=== PATIENT | female | born 1940 | race Caucasian/White ===

== ENCOUNTER → 2017-03-22 | Outpatient (CLI) | payer MEDICARE, BC ==
--- NOTE | 2017-03-23 15:50 | MM ---
Reason for exam: screening (asymptomatic). Last mammogram was performed 1 year and 1 month ago. History: Patient is postmenopausal. Family history of breast cancer in aunt and breast cancer in mother. Excisional biopsy of the left breast. Excisional biopsy of the right breast. Physical Findings: A clinical breast exam by your physician is recommended on an annual basis and results should be correlated with mammographic findings. MG 3D Screening Mammo W/Cad Bilateral CC and MLO view(s) were taken. Prior study comparison: March 01, 2016, bilateral MG 3d diag mammo w/cad IZZY. October 07, 2013, left diagnostic mammogram w/CAD. There are scattered fibroglandular densities. No significant changes when compared with prior studies. ASSESSMENT: Benign, BI-RAD 2 RECOMMENDATION: Routine screening mammogram of both breasts in 1 year.
== END | disposition home or self-care (01) ==
LOC: RADMAMWWP 10:45
PROVIDERS: ATTEND Internal Medicine
DX: Z12.31 Encounter for screening mammogram for malignant neoplasm of breast (principal)
CPT/HCPCS: 77063; G0202

== ENCOUNTER → 2021-10-11 | Outpatient (CLI) | payer MEDICARE ==
--- NOTE | 2021-10-11 15:24 | CT ---
EXAMINATION TYPE: CT ankle RT wo con DATE OF EXAM: 10/11/2021 COMPARISON: None. HISTORY: Displaced bimalleolar fracture of right leg. Pain. CT DLP: 226.8 mGycm Automated exposure control for dose reduction was used. CONTRAST: CT right ankle without contrast FINDINGS: Overlying fiberglass cast material is present. Osseous structures are demineralized. There is acute comminuted minimally displaced intra-articular fracture of the medial malleolus confir med greatest along the anterior aspect. No intra-articular loose bodies. There is acute comminuted intra-articular minimally displaced fracture through the lateral malleolus slight lateral step off of the distal fracture fragment measuring approximately 2 mm. A few small bon y fragments or calcifications along the posterior aspect of the lateral malleolus between the adjacen t talus are identified intra-articular in location coronal images 34 through 37. Posterior malleolus is intact. Ankle mortise symmetry is maintained. Small sized inferior calcaneal spur. Moderate to severe narrowing at the first metatarsal articulatio n with the medial cuneiform with some bony formation. Moderate diffuse subcutaneous edema and soft ti ssue swelling throughout the distal leg into the ankle along with the hindfoot and midfoot levels. IMPRESSION: As above.
== END | disposition home or self-care (01) ==
LOC: RADCTMAIN 13:59
PROVIDERS: ATTEND Orthopaedic Surgery
DX: M25.571 Pain in right ankle and joints of right foot (principal); S82.841D Displaced bimalleolar fracture of right lower leg, subsequent encounter for closed fracture with routine healing; X58.XXXD Exposure to other specified factors, subsequent encounter

== ENCOUNTER → 2021-11-03 | Outpatient (CLI) | payer MEDICARE ==
--- NOTE | 2021-11-03 14:39 | US ---
EXAMINATION TYPE: US venous doppler duplex LE RT DATE OF EXAM: 11/03/2021 2:24 PM COMPARISON: NONE CLINICAL HISTORY: 81-year-old female I80.9 Phlebitis and thrombophlebitis of unspecified. Patient has a fracture of the right lower leg. SIDE PERFORMED: Right TECHNIQUE: The lower extremity deep venous system is examined utilizing real time linear array sonog wilner with graded compression, doppler sonography and color-flow sonography. FINDINGS: VESSELS IMAGED: Common Femoral Vein Deep Femoral Vein Greater Saphenous Vein * Femoral Vein Popliteal Vein Small Saphenous Vein * Proximal Calf Veins (* superficial vessels) Right Leg: Negative for DVT Relief Charge Nurse notes: Difficult examination due to limited mobility caused by recent fracture of the rig ht lower extremity. IMPRESSION: No evidence for DVT within the right lower extremity imaged from the groin to the upper calf.
== END | disposition home or self-care (01) ==
LOC: RADUSWWP 13:51
PROVIDERS: ATTEND Orthopaedic Surgery
DX: S82.841D Displaced bimalleolar fracture of right lower leg, subsequent encounter for closed fracture with routine healing (principal); I80.9 Phlebitis and thrombophlebitis of unspecified site; X58.XXXD Exposure to other specified factors, subsequent encounter

== ENCOUNTER 2024-08-12 16:44 | Emergency (ER) | payer MEDICARE ==
--- NOTE | 2024-08-12 16:54 | ED ---
Fall HPI - General Stated Complaint: [id number]-[id number] Injury Time Seen by Provider: 08/12/24 16:51 Source: RN notes reviewed, old records reviewed Mode of arrival: ambulatory Limitations: no limitations - History of Present Illness Initial Comments: This is a 84-year-old female to the ER for evaluation. Patient comes in as an unresponsive suspected trauma patient. Patient was found on the ground in her garage now with difficulty responding. to the left little bit prior a few hours and patient was acting normally in normal condition in the house. 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 Witnessed: yes, by family Place Fall Occurred: home Loss of Consciousness: none Prolonged Down Time?: no Symptoms Prior to Fall: none Location: head Severity: severe Severity scale (1-10): 10 Context: tripped/slipped Associated Symptoms: denies - Related Data Home Medications Medication Instructions Recorded Confirmed traMADol HCl [Ultram] 50 mg PO Q6H PRN 08/17/15 08/12/24 Baclofen [Lioresal] 10 mg PO TID PRN 08/12/24 08/12/24 Clopidogrel [Plavix] 75 mg PO DAILY 08/12/24 08/12/24 DULoxetine HCL [Cymbalta] 60 mg PO HS 08/12/24 08/12/24 Donepezil [Aricept] 10 mg PO BID 08/12/24 08/12/24 Fluticasone/Vilanterol [Breo 1 puff INHALATION RT-DAILY 08/12/24 08/12/24 Ellipta 100-25 Mcg Inhalr] Pantoprazole Sodium [Protonix] 40 mg PO DAILY 08/12/24 08/12/24 traZODone HCL [Desyrel] 50 mg PO HS 08/12/24 08/12/24 Allergies Allergy/AdvReac Type Severity Reaction Status Date / Time Iodinated Contrast Media Allergy Dyspnea Verified 08/12/24 17:03 [Iodinated Contrast Media - IV Dye] latex Allergy Dyspnea Verified 08/12/24 17:03 shellfish derived [Shellfish] Allergy Dyspnea Verified 08/12/24 17:03 Review of Systems ROS Statement: Those systems with pertinent positive or pertinent negative responses have been documented in the HPI. ROS Other: All systems not noted in ROS Statement are negative. Past Medical History Past Medical History: Asthma, COPD, Eye Disorder, Hypertension, Musculoskeletal Disorder, Osteoarthritis (OA) Additional Past Medical History / Comment(s): Sarcoidosis. BILAT CATARACTS - History of Any Multi-Drug Resistant Organisms: None Reported Past Surgical History: Cholecystectomy, Hernia Repair, Tonsillectomy Additional Past Surgical History / Comment(s): 2 Br Biopsies Past Anesthesia/Blood Transfusion Reactions: Motion Sickness Past Psychological History: No Psychological Hx Reported Past Alcohol Use History: None Reported Past Drug Use History: None Reported - Past Family History Mother Family Medical History: Cancer Additional Family Medical History / Comment(s): breast General Exam - General Exam Comments Initial Comments: GCS 12 Airway is patent Trachea is midline Breath sounds equal bilaterally No evidence of significant extremity deformity General appearance: alert, in no apparent distress Head exam: Present: normocephalic, normal inspection. Absent: atraumatic (Patient does have right posterior scalp hematoma) Eye exam: Present: normal appearance, PERRL, EOMI. Absent: scleral icterus, conjunctival injection, periorbital swelling ENT exam: Present: normal exam, mucous membranes moist Neck exam: Present: normal inspection. Absent: tenderness, meningismus, lymphadenopathy Respiratory exam: Present: normal lung sounds bilaterally. Absent: respiratory distress, wheezes, rales, rhonchi, stridor Cardiovascular Exam: Present: regular rate, normal rhythm, normal heart sounds. Absent: systolic murmur, diastolic murmur, rubs, gallop, clicks GI/Abdominal exam: Present: soft, normal bowel sounds. Absent: distended, tenderness, guarding, rebound, rigid Extremities exam: Present: normal inspection, full ROM, normal capillary refill. Absent: tenderness, pedal edema, joint swelling, calf tenderness Back exam: Present: normal inspection Neurological exam: Present: alert, oriented X3, CN II-XII intact Psychiatric exam: Present: normal affect, normal mood Skin exam: Present: warm, dry, intact, normal color. Absent: rash Course Vital Signs 08/12/24 16:59 Temperature 97.1 F L Pulse Rate 81 Respiratory 20 Rate Blood Pressure 170/94 O2 Sat by Pulse 98 Oximetry - Reevaluation(s) Reevaluation #1: 08/12/24 18:02 Medical records reviewed Reevaluation #2: 08/12/24 18:02 Patient symptoms unchanged 08/12/24 18:02 Patient is requiring sedation Reevaluation #3: 08/12/24 18:02 Patient informed of results and questions answered Reevaluation #4: Was pt. sent in by a medical professional or institution (SANTY Freitas, [facility], urgent care, hospital, or correction...) When possible be specific @ -no Did you speak to anyone other than the patient for history (EMS, parent, family, police, friend...)? What history was obtained from this source @ -no Did you review nursing and triage notes (agree or disagree)? Why? @ -agree Are old charts reviewed (outside hosp., previous admission, EMS record, old EKG, old radiological studies, urgent care reports/EKG's, correction records)? Report findings @ -yes Differential Diagnosis (chest pain, altered mental status, abdominal pain women, abdominal pain men, vaginal bleeding, weakness, fever, dyspnea, syncope, heada oswald, dizziness, GI bleed, back pain, seizure, CVA, palpatations, mental health, musculoskeletal)? @ -prior EKG interpreted by me (3pts min.). @ -yes X-rays interpreted by me (1pt min.). @ -yes negative for acute disease CT interpreted by me (1pt min.). @ -Yes positive for subarachnoid hemorrhage U/S interpreted by me (1pt. min.). @ -no What testing was considered but not performed or refused? (CT, X-rays, U/S, labs)? Why? @ -none What meds were considered but not given or refused? Why? @ -none Did you discuss the management of the patient with other professionals (professionals i.e. SANTY Freitas, [facility], lab, RT, psych nurse, social organization professor, label rewinder, teacher, security officers and guards, disease case manager)? Give summary @ -no Was smoking cessation discussed for >3mins.? @ -no Was critical care preformed (if so, how long)? @ -yes31 Were there social determinants of health that impacted care today? How? (Ho melessness, low income, unemployed, alcoholism, drug addiction, transportation, low edu. Level, literacy, decrease access to med. care, mcc, rehab)? @ -none Was there de-escalation of care discussed even if they declined (Discuss DNR or withdrawal of care, Hospice)? DNR status @ -no What co-morbidities impacted this encounter? (DM, HTN, Smoking, COPD, CAD, Cancer, CVA, ARF, Chemo, Hep., AIDS, mental health diagnosis, sleep apnea, morbid obesity)? @ -none Was patient admitted / discharged? Hospital course, mention meds given and route, prescriptions, significant lab abnormalities, going to OR and other pertinent info. @ - 84 female status posttraumatic fall with subarachnoid hemorrhage. No evidence of aneurysm patient will transfer under traumatic trauma to [facility] Transferred to inpatient evaluation Undiagnosed new problem with uncertain prognosis? @ -no Drug Therapy requiring intensive monitoring for toxicity (Heparin, Nitro, Insulin, Cardizem)? @ -no Were any procedures done? @ -no Diagnosis/symptom? @ -Subarachnoid hemorrhage with traumatic fall Acute, or Chronic, or Acute on Chronic? @ -Acute Uncomplicated (without systemic symptoms) or Complicated (systemic symptoms)? @ -Complicated Side effects of treatment? @ -no Exacerbation, Progression, or Severe Exacerbation? @ -exacerbation Poses a threat to life or bodily function? How? (Chest pain, [place], [place], pneumonia, PE, COPD, DKA, ARF, appy, cholecystitis, CVA, Diverticulitis, Homicidal, Suicidal, threat to staff... and all critical care pts) @ -yes extremes of age Reevaluation #5: Differential Altered Mental Status: Hypoglycemia, DKA, hypercapnia, ETOH, overdose, CO poisoning, trauma, myxedema coma, HTN encephalopathy, infection, encephalitis, psychosis, intercranial hem orrhage, hepatic encephalopathy, meningitis, CVA, this is not meant to be an all-inclusive list - Consultations Consultation #1: Spoke with transferring hospital who does accept patient as transfer Medical Decision Making - Medical Decision Making 84 female status posttraumatic fall with subarachnoid hemorrhage. No evidence of aneurysm patient will transfer under traumatic trauma to [facility] - Lab Data Result diagrams: 08/12/24 16:59 08/12/24 16:59 Lab Results 08/12/24 08/12/24 08/12/24 Range/Units 16:59 16:59 16:59 WBC 11.6 H (3.8-10.6) k/uL RBC 4.46 (3.80-5.40) m/uL Hgb 13.2 (11.4-16.0) gm/dL Hct 40.8 (34.0-46.0) % MCV 91.5 (80.0-100.0) fL MCH 29.6 (25.0-35.0) pg MCHC 32.4 (31.0-37.0) g/dL RDW 14.4 (11.5-15.5) % Plt Count 178 (150-450) k/uL MPV 8.2 Neutrophils % 84 % Lymphocytes % 9 % Monocytes % 5 % Eosinophils % 2 % Basophils % 0 % Neutrophils # 9.7 H (1.3-7.7) k/uL Lymphocytes # 1.0 (1.0-4.8) k/uL Monocytes # 0.5 (0-1.0) k/uL Eosinophils # 0.2 (0-0.7) k/uL Basophils # 0.0 (0-0.2) k/uL PT (10.0-12.5) sec INR (<1.2) APTT (22.0-30.0) sec Sodium 137 (137-145) mmol/L Potassium 4.7 (3.5-5.1) mmol/L Chloride 103 (98-107) mmol/L Carbon Dioxide 25 (22-30) mmol/L Anion Gap 9 mmol/L BUN 21 H (7-17) mg/dL Creatinine 0.87 (0.52-1.04) mg/dL Est GFR (CKD-EPI)AfAm 71 (>60 ml/min/1.73 sqM) Est GFR (CKD-EPI)NonAf 62 (>60 ml/min/1.73 sqM) Glucose 120 H (74-99) mg/dL Lactic Ac Sepsis Rflx Plasma Lactic Acid Ambrose (0.7-2.0) mmol/L Calcium 8.8 (8.4-10.2) mg/dL Total Bilirubin 1.0 (0.2-1.3) mg/dL AST 37 H (14-36) U/L ALT 16 (4-34) U/L Alkaline Phosphatase 70 (38-126) U/L Troponin I 0.103 H* (0.000-0.034) ng/mL Total Protein 5.9 L (6.3-8.2) g/dL Albumin 3.8 (3.5-5.0) g/dL Urine Opiates Screen (NotDetected) Ur Oxycodone Screen (NotDetected) Urine Methadone Screen (NotDetected) Ur Barbiturates Screen (NotDetected) U Tricyclic Antidepress (NotDetected) Ur Phencyclidine Scrn (NotDetected) Ur Amphetamines Screen (NotDetected) U Methamphetamines Scrn (NotDetected) U Benzodiazepines Scrn (NotDetected) Urine Cocaine Screen (NotDetected) U Marijuana (THC) Screen (NotDetected) Serum Alcohol <10 mg/dL Blood Type Blood Type Confirm Blood Type Recheck Bld Type Recheck Status Antibody Screen Spec Expiration Date 08/12/24 08/12/24 08/12/24 Range/Units 17:05 17:05 17:05 WBC (3.8-10.6) k/uL RBC (3.80-5.40) m/uL Hgb (11.4-16.0) gm/dL Hct (34.0-46.0) % MCV (80.0-100.0) fL MCH (25.0-35.0) pg MCHC (31.0-37.0) g/dL RDW (11.5-15.5) % Plt Count (150-450) k/uL MPV Neutrophils % % Lymphocytes % % Monocytes % % Eosinophils % % Basophils % % Neutrophils # (1.3-7.7) k/uL Lymphocytes # (1.0-4.8) k/uL Monocytes # (0-1.0) k/uL Eosinophils # (0-0.7) k/uL Basophils # (0-0.2) k/uL PT 11.1 (10.0-12.5) sec INR 1.0 (<1.2) APTT 21.3 L (22.0-30.0) sec Sodium (137-145) mmol/L Potassium (3.5-5.1) mmol/L Chloride (98-107) mmol/L Carbon Dioxide (22-30) mmol/L Anion Gap mmol/L BUN (7-17) mg/dL Creatinine (0.52-1.04) mg/dL Est GFR (CKD-EPI)AfAm (>60 ml/min/1.73 sqM) Est GFR (CKD-EPI)NonAf (>60 ml/min/1.73 sqM) Glucose (74-99) mg/dL Lactic Ac Sepsis Rflx Plasma Lactic Acid Ambrose 2.7 H* (0.7-2.0) mmol/L Calcium (8.4-10.2) mg/dL Total Bilirubin (0.2-1.3) mg/dL AST (14-36) U/L ALT (4-34) U/L Alkaline Phosphatase (38-126) U/L Troponin I (0.000-0.034) ng/mL Total Protein (6.3-8.2) g/dL Albumin (3.5-5.0) g/dL Urine Opiates Screen (NotDetected) Ur Oxycodone Screen (NotDetected) Urine Methadone Screen (NotDetected) Ur Barbiturates Screen (NotDetected) U Tricyclic Antidepress (NotDetected) Ur Phencyclidine Scrn (NotDetected) Ur Amphetamines Screen (NotDetected) U Methamphetamines Scrn (NotDetected) U Benzodiazepines Scrn (NotDetected) Urine Cocaine Screen (NotDetected) U Marijuana (THC) Screen (NotDetected) Serum Alcohol mg/dL Blood Type O Positive Blood Type Confirm Blood Type Recheck No Previous Record Bld Type Recheck Status CABO Indicated Antibody Screen NEGATIVE Spec Expiration Date 08/15/2024230408/12/24 08/12/24 08/12/24 Range/Units 17:27 17:38 18:18 WBC (3.8-10.6) k/uL RBC (3.80-5.40) m/uL Hgb (11.4-16.0) gm/dL Hct (34.0-46.0) % MCV (80.0-100.0) fL MCH (25.0-35.0) pg MCHC (31.0-37.0) g/dL RDW (11.5-15.5) % Plt Count (150-450) k/uL MPV Neutrophils % % Lymphocytes % % Monocytes % % Eosinophils % % Basophils % % Neutrophils # (1.3-7.7) k/uL Lymphocytes # (1.0-4.8) k/uL Monocytes # (0-1.0) k/uL Eosinophils # (0-0.7) k/uL Basophils # (0-0.2) k/uL PT (10.0-12.5) sec INR (<1.2) APTT (22.0-30.0) sec Sodium (137-145) mmol/L Potassium (3.5-5.1) mmol/L Chloride (98-107) mmol/L Carbon Dioxide (22-30) mmol/L Anion Gap mmol/L BUN (7-17) mg/dL Creatinine (0.52-1.04) mg/dL Est GFR (CKD-EPI)AfAm (>60 ml/min/1.73 sqM) Est GFR (CKD-EPI)NonAf (>60 ml/min/1.73 sqM) Glucose (74-99) mg/dL Lactic Ac Sepsis Rflx Y Plasma Lactic Acid Ambrose (0.7-2.0) mmol/L Calcium (8.4-10.2) mg/dL Total Bilirubin (0.2-1.3) mg/dL AST (14-36) U/L ALT (4-34) U/L Alkaline Phosphatase (38-126) U/L Troponin I (0.000-0.034) ng/mL Total Protein (6.3-8.2) g/dL Albumin (3.5-5.0) g/dL Urine Opiates Screen Not Detected (NotDetected) Ur Oxycodone Screen Not Detected (NotDetected) Urine Methadone Screen Not Detected (NotDetected) Ur Barbiturates Screen Not Detected (NotDetected) U Tricyclic Antidepress Not Detected (NotDetected) Ur Phencyclidine Scrn Not Detected (NotDetected) Ur Amphetamines Screen Not Detected (NotDetected) U Methamphetamines Scrn Not Detected (NotDetected) U Benzodiazepines Scrn Not Detected (NotDetected) Urine Cocaine Screen Not Detected (NotDetected) U Marijuana (THC) Screen Not Detected (NotDetected) Serum Alcohol mg/dL Blood Type Blood Type Confirm O Positive Blood Type Recheck Bld Type Recheck Status Antibody Screen Spec Expiration Date - EKG Data -: EKG Interpreted by Me (EKG is sinus 82 RI 181 QRS 77 QTc 421) - Radiology Data Radiology results: report reviewed (CT brain C-spine chest and pelvis x-ray pos itive for intracranial hemorrhage subarachnoid), image reviewed Critical Care Time Critical Care Time: Yes Total Critical Care Time: 31 Disposition Clinical Impression: Fall, Subarachnoid hemorrhage, Hematoma of occipital region of scalp Disposition: OTHER INSTITUTION NOT DEFINED Condition: Critical Is patient prescribed a controlled substance at d/c from ED?: No Referrals: Cleveland Burden MD [Primary Care Provider] - 1-2 days Time of Disposition: 18:20 - Out of Hospital Transfer - Req. Specs Out of Hospital Transfer - Requested Specifics: Other Emergency Center ([facility])
[2024-08-12 17:02] VITALS: BP 170/94; PULSE 81; RESP 20; TEMP 97.1
[2024-08-12] MEDS: LORazepam 2 MG/ML INJ IV STA ×2 (17:12→18:28)
[2024-08-12 17:17] LABS: Basophils % (A) 0 %; Eosinophils # (A) 0.2 k/uL (0-0.7); Eosinophils % (A) 2 %; HCT 40.8 % (34.0-46.0); HGB 13.2 gm/dL (11.4-16.0); Lymphocytes % (A) 9 %; MCH 29.6 pg (25.0-35.0); MCHC 32.4 g/dL (31.0-37.0); MCV 91.5 fL (80.0-100.0); Mean Platelet Volume 8.2; Monocytes # (A) 0.5 k/uL (0-1.0); Monocytes % (A) 5 %; Neutrophils # (A) 9.7 k/uL (1.3-7.7); Neutrophils % (A) 84 %; Platelet Count 178 k/uL (150-450); RBC 4.46 m/uL (3.80-5.40); RDW 14.4 % (11.5-15.5); WBC 11.6 k/uL (3.8-10.6)
[2024-08-12] MEDS: diphenhydrAMINE 50 MG CAP PO STA (17:20)
[2024-08-12] MEDS: FAMOTIDINE 20 MG/2 ML VIAL IV STA (17:23)
[2024-08-12] MEDS: diphenhydrAMINE 50 MG/ML 1 ML VIAL IVP STA (17:23)
[2024-08-12] MEDS: methylPREDNISolone SOD SUCCI 125 MG/2 ML VIAL IV STA (17:24)
[2024-08-12 17:31] LABS: ALT 16 U/L (4-34); African American GFR (CKD) 71 (>60 ml/min/1.73 sqM); Alcohol <10 mg/dL; Anion Gap 9 mmol/L; Blood Urea Nitrogen 21 mg/dL (7-17); Calcium 8.8 mg/dL (8.4-10.2); Carbon Dioxide 25 mmol/L (22-30); Chloride 103 mmol/L (98-107); Glucose 120 mg/dL (74-99); Non-African American GFR(CKD) 62 (>60 ml/min/1.73 sqM); Sodium 137 mmol/L (137-145)
[2024-08-12 17:35] LABS: AST 37 U/L (14-36); Albumin 3.8 g/dL (3.5-5.0); Alkaline Phosphatase 70 U/L (38-126); Potassium 4.7 mmol/L (3.5-5.1); Total Protein 5.9 g/dL (6.3-8.2)
[2024-08-12 17:42] LABS: Prothrombin Time 11.1 sec (10.0-12.5)
[2024-08-12 17:43] LABS: Partial Thromboplastin Time 21.3 sec (22.0-30.0)
--- NOTE | 2024-08-12 17:51 | CT ---
EXAMINATION TYPE: CT brain jefferson egan DATE OF EXAM: 08/12/2024 COMPARISON: None HISTORY: fall, ams CT DLP: 1551.6 mGycm, Automated exposure control for dose reduction was used. CONTRAST: Patient injected with 0 mL of Isovue 300. CT of the brain is performed utilizing 3 mm thick sections through the posterior fossa and 3 mm thick sections through the remaining calvarium. Study is performed within 24 hours of arrival to the hospital. There is linear areas of increased density within the left temporal region. The subarachnoid hemorrh age is left middle cranial fossa. Consider possibility of an aneurysm of the left middle cerebral art akash measuring up to 0.6 cm. There is petechial hemorrhage within the right proximal temporal lobe. Se wilmer 2 0-30, measuring 1.1 cm in size. Punctate subarachnoid hemorrhage mainly near the vertex. Serie s 201 image 52 Soft tissue swelling is over the right parietal especially near the vertex. No mass lesion is evident. No acute infarcts are evident. There is periventricular white matter hypodensity, likely on the basi s of chronic white matter ischemic change. Ventricles and sulci are prominent for the patient age. Paranasal sinuses and mastoid air cells within the [id number] are clear. IMPRESSIONS: 1. Acute subarachnoid hemorrhage left temporal lobe extending into the left middle cranial fossa. An additional subarachnoid hemorrhage near the vertex on the right. Petechial hemorrhages within the rig ht proximal temporal lobe. 2. Chronic periventricular white matter ischemic type changes. 3. Superficial soft tissue swelling hematoma right parietal vertex. CT cervical spine. COMPARISON: None CT of the cervical spine is performed in the axial plane at 2 mm thick sections. Reconstructed image s in the coronal, and sagittal plane are reviewed on the computer. No acute fractures are evident. Scoliosis is present with convexity to the right through the cervical spine. Disc space narrowing is present through the cervical spine greatest at C5-6. Vertebral body heights are preserved. No spinal canal stenosis is evident. Uncovertebral joint hypertrophy is present C5-6 on the left with moderate foraminal stenosis. IMPRESSION: 1. Normal CT cervical spine. [facility], Workstation: [facility], 08/12/2024 5:49 PM
--- NOTE | 2024-08-12 17:57 | P.GSHP ---
History of Present Illness H&P Date: 08/12/24 Fall HPI This is an 84 year old female that suffered a fall at home with AMS. A level 2 trauma was paged out. She currently has a GCS of 13 and is responding to questions. She has a noted contusion on her scalp but not other deformities or obvious injuries noted. Review of Systems ROS Statement: Those systems with pertinent positive or pertinent negative responses have been documented in the HPI. ROS Other: All systems not noted in ROS Statement are negative. Past Medical History Past Medical History: Asthma, COPD, Eye Disorder, Hypertension, Musculoskeletal Disorder, Osteoarthritis (OA) Additional Past Medical History / Comment(s): Sarcoidosis. BILAT CATARACTS - History of Any Multi-Drug Resistant Organisms: None Reported Past Surgical History: Cholecystectomy, Hernia Repair, Tonsillectomy Additional Past Surgical History / Comment(s): 2 Br Biopsies Past Anesthesia/Blood Transfusion Reactions: Motion Sickness Past Psychological History: No Psychological Hx Reported Past Alcohol Use History: None Reported Past Drug Use History: None Reported - Past Family History Mother Family Medical History: Cancer Additional Family Medical History / Comment(s): breast VSS General-NAD CVS-RRR Lungs-NLB Abdomen-soft, NTND Ext No edema 84 year old female with Fall and AMS - Imaging Pending - Labs pending - Pain Control - Further recs to follow Nahun Villalba DO [facility] [phone] Past Medical History Past Medical History: Asthma, COPD, Eye Disorder, Hypertension, Musculoskeletal Disorder, Osteoarthritis (OA) Additional Past Medical History / Comment(s): Sarcoidosis. BILAT CATARACTS - History of Any Multi-Drug Resistant Organisms: None Reported Past Surgical History: Cholecystectomy, Hernia Repair, Tonsillectomy Additional Past Surgical History / Comment(s): 2 Br Biopsies Past Anesthesia/Blood Transfusion Reactions: Motion Sickness Past Psychological History: No Psychological Hx Reported Past Alcohol Use History: None Reported Past Drug Use History: None Reported - Past Family History Mother Family Medical History: Cancer Additional Family Medical History / Comment(s): breast Medications and Allergies Home Medications Medication Instructions Recorded Confirmed Type traMADol HCl [Ultram] 50 mg PO Q6H PRN 08/17/15 08/12/24 History Baclofen [Lioresal] 10 mg PO TID PRN 08/12/24 08/12/24 History Clopidogrel [Plavix] 75 mg PO DAILY 08/12/24 08/12/24 History DULoxetine HCL [Cymbalta] 60 mg PO HS 08/12/24 08/12/24 History Donepezil [Aricept] 10 mg PO BID 08/12/24 08/12/24 History Fluticasone/Vilanterol [Breo 1 puff INHALATION RT-DAILY 08/12/24 08/12/24 History Ellipta 100-25 Mcg Inhalr] Pantoprazole Sodium [Protonix] 40 mg PO DAILY 08/12/24 08/12/24 History traZODone HCL [Desyrel] 50 mg PO HS 08/12/24 08/12/24 History Allergies Allergy/AdvReac Type Severity Reaction Status Date / Time Iodinated Contrast Media Allergy Dyspnea Verified 08/12/24 17:03 [Iodinated Contrast Media - IV Dye] latex Allergy Dyspnea Verified 08/12/24 17:03 shellfish derived [Shellfish] Allergy Dyspnea Verified 08/12/24 17:03 Surgical - Exam Vital Signs Temp Pulse Resp BP Pulse Ox 97.1 F L 81 20 170/94 98 08/12/24 16:59 08/12/24 16:59 08/12/24 16:59 08/12/24 16:59 08/12/24 16:59 Results - Labs 08/12/24 16:59 08/12/24 16:59 Abnormal Lab Results - Last 24 Hours (Table) 08/12/24 08/12/24 08/12/24 Range/Units 16:59 16:59 17:05 WBC 11.6 H (3.8-10.6) k/uL Neutrophils # 9.7 H (1.3-7.7) k/uL APTT 21.3 L (22.0-30.0) sec BUN 21 H (7-17) mg/dL Glucose 120 H (74-99) mg/dL Plasma Lactic Acid Ambrose (0.7-2.0) mmol/L AST 37 H (14-36) U/L Total Protein 5.9 L (6.3-8.2) g/dL 08/12/24 Range/Units 17:05 WBC (3.8-10.6) k/uL Neutrophils # (1.3-7.7) k/uL APTT (22.0-30.0) sec BUN (7-17) mg/dL Glucose (74-99) mg/dL Plasma Lactic Acid Ambrose 2.7 H* (0.7-2.0) mmol/L AST (14-36) U/L Total Protein (6.3-8.2) g/dL Diabetes panel 08/12/24 Range/Units 16:59 Sodium 137 (137-145) mmol/L Potassium 4.7 (3.5-5.1) mmol/L Chloride 103 (98-107) mmol/L Carbon Dioxide 25 (22-30) mmol/L BUN 21 H (7-17) mg/dL Creatinine 0.87 (0.52-1.04) mg/dL Glucose 120 H (74-99) mg/dL Calcium 8.8 (8.4-10.2) mg/dL AST 37 H (14-36) U/L ALT 16 (4-34) U/L Alkaline Phosphatase 70 (38-126) U/L Total Protein 5.9 L (6.3-8.2) g/dL Albumin 3.8 (3.5-5.0) g/dL Calcium panel 08/12/24 Range/Units 16:59 Calcium 8.8 (8.4-10.2) mg/dL Albumin 3.8 (3.5-5.0) g/dL Pituitary panel 08/12/24 Range/Units 16:59 Sodium 137 (137-145) mmol/L Potassium 4.7 (3.5-5.1) mmol/L Chloride 103 (98-107) mmol/L Carbon Dioxide 25 (22-30) mmol/L BUN 21 H (7-17) mg/dL Creatinine 0.87 (0.52-1.04) mg/dL Glucose 120 H (74-99) mg/dL Calcium 8.8 (8.4-10.2) mg/dL Adrenal panel 08/12/24 Range/Units 16:59 Sodium 137 (137-145) mmol/L Potassium 4.7 (3.5-5.1) mmol/L Chloride 103 (98-107) mmol/L Carbon Dioxide 25 (22-30) mmol/L BUN 21 H (7-17) mg/dL Creatinine 0.87 (0.52-1.04) mg/dL Glucose 120 H (74-99) mg/dL Calcium 8.8 (8.4-10.2) mg/dL Total Bilirubin 1.0 (0.2-1.3) mg/dL AST 37 H (14-36) U/L ALT 16 (4-34) U/L Alkaline Phosphatase 70 (38-126) U/L Total Protein 5.9 L (6.3-8.2) g/dL Albumin 3.8 (3.5-5.0) g/dL
[2024-08-12] MEDS ORDERED: LORazepam 2 MG/ML INJ IV STA (18:05)
--- NOTE | 2024-08-12 18:09 | XR ---
EXAMINATION TYPE: XR chest 1V portable DATE OF EXAM: 08/12/2024 COMPARISON: None INDICATION: Trauma, fall TECHNIQUE: Single frontal view of the chest is obtained. FINDINGS: The heart size is normal. The pulmonary vasculature is normal. The lungs are clear. No pneumothorax is evident. IMPRESSION: 1. No acute pulmonary process. [facility], Workstation: [facility], 08/12/2024 6:06 PM
--- NOTE | 2024-08-12 18:12 | XR ---
EXAMINATION TYPE: XR pelvis AP view DATE OF EXAM: 08/12/2024 COMPARISON: None HISTORY: Fall, trauma TECHNIQUE: AP pelvis FINDINGS: No acute fracture evident. Femoral heads articulate with the acetabulum. Some sacroiliac jordi int degenerative changes are present. Normal bowel gas is present. Symphysis pubis is normal. IMPRESSION: 1. No acute osseous abnormalities AP pelvis [facility], Workstation: [facility], 08/12/2024 6:10 PM
[2024-08-12 18:39] LABS: Amphetamine Screen,Urine Not Detected (NotDetected); Barbiturate Screen,Urine Not Detected (NotDetected); Benzodiazepines Screen,Urine Not Detected (NotDetected); Cocaine Screen,Urine Not Detected (NotDetected); Methadone Screen, Urine Not Detected (NotDetected); Opiate Screen,Urine Not Detected (NotDetected); Oxycodone Screen, Urine Not Detected (NotDetected); Phencyclidine Screen,Urine Not Detected (NotDetected); Tricyclic Antidepressant,Urine Not Detected (NotDetected); Urn Cannabinoid Scrn Not Detected (NotDetected)
--- NOTE | 2024-08-12 19:18 | CT ---
EXAMINATION TYPE: CT angio head neck DATE OF EXAM: 08/12/2024 HISTORY: ams, fall COMPARISON: None CT DLP: 497.9 mGycm. Automated Exposure Control for Dose Reduction was Utilized. TECHNIQUE: CTA scan of the neck is performed with IV Contrast, patient injected with 65ml mL of Isov ue 370, axial images are obtained, coronal and sagittal reformatted images are reviewed. Three-D mesha nstructed images are created on an independent workstation and reviewed. Source images are reviewed. FINDINGS: Carotid/Vascular Structures: There is a common origin left common carotid artery with the right subcl denise and innominate Common carotid arteries bifurcate into internal and external carotid arteries without significant kaley w limiting stenosis. Vertebral arteries are codominant. Internal carotid arteries and vertebral arteries are patent to the skull base. Cervical of Rivera: Vertebral basilar system appears normal. Posterior cerebral vasculature is unrema rkable. Internal carotid arteries bifurcate normally into A1 and M1 segments. A2 segments are normal. The anterior communicating artery is not clearly identified.. The right posterior communicating artery is absent. The left posterior communicating artery is patent. Other: No suspicious aneurysm identified. No abnormality of the left cerebral artery branches. No ane urysm identified. No extravasation of contrast. IMPRESSION: 1. No flow-limiting stenosis bilateral carotid bifurcations. 2. Normal [place] of [place] NASCET criteria was used in interpretation of this exam? [facility], Workstation: [facility], 08/12/2024 7:15 PM
== END 2024-08-12 18:46 | disposition other institution (70) ==
LOC: EC 16:44
CPT/HCPCS: 36415; 70450; 70496; 70498; 71045; 72125; 72170; 80053; 80306; 80320; 83605; 84484; 85025; 85610; 85730; 86850; 86900; 86901; 93005; 96374; 96375; 96376; 99291

== ENCOUNTER 2025-03-01 19:35 | Inpatient (IN) | payer MEDICARE ==
[2025-03-01 19:42] LABS: Glucose,Whole Blood 92 mg/dL (70-110)
--- NOTE | 2025-03-01 19:43 | ED ---
Neuro HPI - General Stated Complaint: Possible Stroke Time Seen by Provider: 03/01/25 19:40 Source: RN notes reviewed, old records reviewed Mode of arrival: EMS Limitations: altered mental status - History of Present Illness Is the patient presenting with stroke symptoms?: Yes -: minutes(s) (50) Initial Comments: This is a 84 female to ER for evaluation this patient presents today for evaluation of strokelike activity noted 45 minutes prior to arrival around 7:00 patient was noted to have slurring in speech and right-sided weakness. Patient presents by EM with neurodeficit recent history of intracranial hemorrhage subarachnoid hemorrhage from a fall, no blood thinners Location: speech, right arm Place: home Severity: mild Quality: weak, numb, tingling Improves With: none Worsens With: none Context: sudden onset Associated Symptoms: confusion Treatments Prior to Arrival: none - Related Data Home Medications: Home Medications Medication Instructions Recorded Confirmed DULoxetine HCL [Cymbalta] 60 mg PO DAILY 08/12/24 03/02/25 Pantoprazole Sodium [Protonix] 40 mg PO DAILY 08/12/24 03/02/25 Rivastigmine Tartrate [Exelon] 1.5 mg PO BID-W/MEALS 03/02/25 03/02/25 Previous Rx's Medication Instructions Recorded Atorvastatin Calcium [Lipitor] 40 mg PO HS #60 tab 03/03/25 Ticagrelor [Brilinta] 90 mg PO BID #90 tab 03/03/25 Allergies/Adverse Reactions: Allergies Allergy/AdvReac Type Severity Reaction Status Date / Time Iodinated Contrast Media Allergy Dyspnea Verified 03/02/25 09:27 [Iodinated Contrast Media - IV Dye] latex Allergy Dyspnea Verified 03/02/25 09:27 Penicillins Allergy Rash/Hives Verified 03/02/25 21:19 shellfish derived [Shellfish] Allergy Dyspnea Verified 03/02/25 09:27 Review of Systems ROS Statement: Those systems with pertinent positive or pertinent negative responses have been documented in the HPI. ROS Other: All systems not noted in ROS Statement are negative. General Exam - General Exam Comments Initial Comments: NIH of 2 mainly considered slurred speech General appearance: alert, in no apparent distress Head exam: Present: atraumatic, normocephalic, normal inspection Eye exam: Present: normal appearance, PERRL, EOMI. Absent: scleral icterus, conjunctival injection, periorbital swelling ENT exam: Present: normal exam, mucous membranes moist Neck exam: Present: normal inspection. Absent: tenderness, meningismus, lymphadenopathy Respiratory exam: Present: normal lung sounds bilaterally. Absent: respiratory distress, wheezes, rales, rhonchi, stridor Cardiovascular Exam: Present: regular rate, normal rhythm, normal heart sounds. Absent: systolic murmur, diastolic murmur, rubs, gallop, clicks GI/Abdominal exam: Present: soft, normal bowel sounds. Absent: distended, tenderness, guarding, rebound, rigid Extremities exam: Present: normal inspection, full ROM, normal capillary refill. Absent: tenderness, pedal edema, joint swelling, calf tenderness Back exam: Present: normal inspection Neurological exam: Present: alert, oriented X3, CN II-XII intact Psychiatric exam: Present: normal affect, normal mood Skin exam: Present: warm, dry, intact, normal color. Absent: rash Stroke MDM - Lab Data Result diagrams: 03/01/25 19:45 03/01/25 19:45 Lab Results 03/01/25 03/01/25 03/01/25 Range/Units 19:41 19:45 19:45 WBC 5.48 (4.50-10.00) 10*3/uL RBC 4.49 (4.10-5.20) 10*6/uL Hgb 12.9 (12.0-15.0) g/dL Hct 39.6 (37.2-46.3) % MCV 88.2 (80.0-97.0) fL MCH 28.7 (27.0-32.0) pg MCHC 32.6 (32.0-37.0) g/dL Plt Count 184 (140-440) 10*3/uL MPV 10.8 (9.5-12.2) fL Immature Gran % (Auto) 0 % Neutrophils % 52.8 % Lymphocytes % 26.5 % Monocytes % 13.5 % Eosinophils % 6.8 % Basophils % 0.4 % Immature Gran # 0.00 (0.00-0.04) 10*3/uL Neutrophils # 2.90 (1.80-7.70) 10*3/uL Lymphocytes # 1.45 (0.90-5.00) 10*3/uL Monocytes # 0.74 (0.20-1.00) 10*3/uL Eosinophils # 0.37 H (0.04-0.35) 10*3/uL Basophils # 0.02 (0.00-0.10) 10*3/uL PT 11.0 (10.0-12.5) sec INR 1.0 (<1.2) APTT 22.6 (22.0-30.0) sec Sodium (137-145) mmol/L Potassium (3.5-5.1) mmol/L Chloride (98-107) mmol/L Carbon Dioxide (22-30) mmol/L Anion Gap mmol/L BUN (7-17) mg/dL Creatinine (0.52-1.04) mg/dL Est GFR (CKD-EPI)AfAm (>60 ml/min/1.73 sqM) Est GFR (CKD-EPI)NonAf (>60 ml/min/1.73 sqM) Glucose (74-99) mg/dL POC Glucose (mg/dL) 92 (70-110) mg/dL POC Glu Fruit Harvester ID Jayce Ames Calcium (8.4-10.2) mg/dL Total Bilirubin (0.2-1.3) mg/dL AST (14-36) U/L ALT (4-34) U/L Alkaline Phosphatase (38-126) U/L Creatine Kinase (30-135) U/L Troponin I (0.000-0.034) ng/mL Total Protein (6.3-8.2) g/dL Albumin (3.5-5.0) g/dL Urine Color Urine Appearance (Clear) Urine pH (5.0-8.0) Ur Specific Dickens (1.001-1.035) Urine Protein (Negative) Urine Glucose (UA) (Negative) Urine Ketones (Negative) Urine Blood (Negative) Urine Nitrite (Negative) Urine Bilirubin (Negative) Urine Urobilinogen (<2.0) mg/dL Ur Leukocyte Esterase (Negative) Urine RBC (0-5) /hpf Urine WBC (0-5) /hpf Ur Squamous Epith Cells (0-4) /hpf Urine Bacteria (None) /hpf Urine Mucus (None) /hpf Urine Yeast (Budding) (None) /hpf 03/01/25 03/01/25 03/01/25 Range/Units 19:45 19:45 20:00 WBC (4.50-10.00) 10*3/uL RBC (4.10-5.20) 10*6/uL Hgb (12.0-15.0) g/dL Hct (37.2-46.3) % MCV (80.0-97.0) fL MCH (27.0-32.0) pg MCHC (32.0-37.0) g/dL Plt Count (140-440) 10*3/uL MPV (9.5-12.2) fL Immature Gran % (Auto) % Neutrophils % % Lymphocytes % % Monocytes % % Eosinophils % % Basophils % % Immature Gran # (0.00-0.04) 10*3/uL Neutrophils # (1.80-7.70) 10*3/uL Lymphocytes # (0.90-5.00) 10*3/uL Monocytes # (0.20-1.00) 10*3/uL Eosinophils # (0.04-0.35) 10*3/uL Basophils # (0.00-0.10) 10*3/uL PT (10.0-12.5) sec INR (<1.2) APTT (22.0-30.0) sec Sodium 137 (137-145) mmol/L Potassium 3.8 (3.5-5.1) mmol/L Chloride 104 (98-107) mmol/L Carbon Dioxide 26 (22-30) mmol/L Anion Gap 7 mmol/L BUN 18 H (7-17) mg/dL Creatinine 0.92 (0.52-1.04) mg/dL Est GFR (CKD-EPI)AfAm 67 (>60 ml/min/1.73 sqM) Est GFR (CKD-EPI)NonAf 58 (>60 ml/min/1.73 sqM) Glucose 96 (74-99) mg/dL POC Glucose (mg/dL) (70-110) mg/dL POC Glu Fruit Harvester ID Calcium 9.4 (8.4-10.2) mg/dL Total Bilirubin 0.6 (0.2-1.3) mg/dL AST 26 (14-36) U/L ALT 14 (4-34) U/L Alkaline Phosphatase 86 (38-126) U/L Creatine Kinase 38 (30-135) U/L Troponin I <0.012 (0.000-0.034) ng/mL Total Protein 5.9 L (6.3-8.2) g/dL Albumin 3.9 (3.5-5.0) g/dL Urine Color Colorless Urine Appearance Clear (Clear) Urine pH 6.5 (5.0-8.0) Ur Specific Dickens 1.006 (1.001-1.035) Urine Protein Negative (Negative) Urine Glucose (UA) Negative (Negative) Urine Ketones Negative (Negative) Urine Blood Negative (Negative) Urine Nitrite Negative (Negative) Urine Bilirubin Negative (Negative) Urine Urobilinogen <2.0 (<2.0) mg/dL Ur Leukocyte Esterase Small H (Negative) Urine RBC 1 (0-5) /hpf Urine WBC 6 H (0-5) /hpf Ur Squamous Epith Cells 2 (0-4) /hpf Urine Bacteria Occasional H (None) /hpf Urine Mucus Rare H (None) /hpf Urine Yeast (Budding) Rare H (None) /hpf - NIH Stroke Scale 1a. Level of Consciousness: (0) alert 1b. LOC Questions: (0) answers correctly 1c. LOC Commands: (0) performs tasks correctly 2. Best Gaze: (0) normal 3. Visual: (0) no visual loss 4. Facial Palsy: (0) normal symmetrical movement 5a. Motor Arm Left: (0) no drift 5b. Motor Arm Right: (1) drift 6a. Motor Leg Left: (0) no drift 6b. Motor Leg Right: (0) no drift 8. Sensory: (0) normal 9. Best Language: (1) mild/moderate aphasia 10. Dysarthria: (1) mild/moderate dysarthria 11. Extinction/Inattention: (0) no abnormality - Thrombolytic Inclusion/Exclusion Thrombolytic Inclusion Criteria: Symptom Onset < 4.5 h - Medical Decision Making 84 female to be admitted for acute CVA NIH 2-4, no improvement in symptoms here in the ER patient will admit for neurology evaluation - Radiology Data Radiology results: report reviewed (CT brain CTA negative for acute disease, chest x-ray is negative for acute disease), image reviewed - EKG Data -: EKG Interpreted by Me (EKG is sinus 75 OH 184 QRS 84 QTc 391) Past Medical History Past Medical History: Asthma, COPD, Eye Disorder, Hypertension, Musculoskeletal Disorder, Osteoarthritis (OA) Additional Past Medical History / Comment(s): Sarcoidosis. BILAT CATARACTS - History of Any Multi-Drug Resistant Organisms: None Reported Past Surgical History: Cholecystectomy, Hernia Repair, Tonsillectomy Additional Past Surgical History / Comment(s): 2 Br Biopsies Past Anesthesia/Blood Transfusion Reactions: Motion Sickness Past Psychological History: No Psychological Hx Reported Past Alcohol Use History: None Reported Past Drug Use History: None Reported - Past Family History Mother Family Medical History: Cancer Additional Family Medical History / Comment(s): breast Course Vital Signs 03/01/25 03/01/25 03/02/25 19:40 20:45 01:00 Temperature 98.1 F Pulse Rate 75 69 69 Respiratory 18 16 Rate Blood Pressure 174/106 186/118 160/76 O2 Sat by Pulse 98 96 95 Oximetry 03/02/25 03/02/25 03/02/25 03:00 04:00 06:14 Temperature Pulse Rate 65 62 72 Respiratory 16 15 16 Rate Blood Pressure 141/73 156/80 129/80 O2 Sat by Pulse 94 L 93 L 97 Oximetry 03/02/25 03/02/25 03/02/25 08:00 08:27 09:00 Temperature 98.5 F Pulse Rate 84 89 87 Respiratory 18 18 18 Rate Blood Pressure 138/94 153/76 O2 Sat by Pulse 97 97 98 Oximetry 03/02/25 03/02/25 03/02/25 09:27 10:00 10:27 Temperature Pulse Rate 76 74 86 Respiratory 18 18 18 Rate Blood Pressure 185/93 180/87 O2 Sat by Pulse 99 98 98 Oximetry 03/02/25 03/02/25 03/02/25 11:35 12:27 12:39 Temperature Pulse Rate 73 90 89 Respiratory 18 18 18 Rate Blood Pressure 158/73 114/82 O2 Sat by Pulse 97 95 96 Oximetry 03/02/25 03/02/25 03/02/25 13:27 15:15 15:36 Temperature 98.4 F Pulse Rate 89 86 91 Respiratory 18 18 18 Rate Blood Pressure 99/76 120/71 O2 Sat by Pulse 97 97 95 Oximetry 03/02/25 03/02/25 03/02/25 16:00 16:37 17:59 Temperature Pulse Rate 85 80 75 Respiratory 18 18 18 Rate Blood Pressure 114/65 130/87 O2 Sat by Pulse 97 96 Oximetry 03/02/25 03/02/25 03/02/25 18:00 18:27 20:16 Temperature 98.4 F Pulse Rate 80 79 76 Respiratory 18 18 20 Rate Blood Pressure 128/70 117/75 O2 Sat by Pulse 95 94 L 95 Oximetry 03/02/25 20:43 Temperature 98.2 F Pulse Rate 70 Respiratory 18 Rate Blood Pressure 121/76 O2 Sat by Pulse 95 Oximetry - Reevaluation(s) Reevaluation #1: 03/01/25 20:05 Medical records reviewed Code stroke paged on patient arrival Reevaluation #2: 03/01/25 21:17 Patient has no change in symptoms here in the ER Reevaluation #3: 03/01/25 21:17 Patient informed of results questions answered Reevaluation #4: 03/01/25 20:06 Was pt. sent in by a medical professional or institution (SANTY Freitas, ACCESS COORDINATOR, urgent care, hospital, or jail...) When possible be specific @ -no Did you speak to anyone other than the patient for history (EMS, parent, family, police, friend...)? What history was obtained from this source @ -no Did you review nursing and triage notes (agree or disagree)? Why? @ -agree Are old charts reviewed (outside hosp., previous admission, EMS record, old EKG, old radiological studies, urgent care reports/EKG's, jail records)? Report findings @ -yes Differential Diagnosis (chest pain, altered mental status, abdominal pain women, abdominal pain men, vaginal bleeding, weakness, fever, dyspnea, syncope, headache, dizziness, GI bleed, back pain, seizure, CVA, palpatations, mental health, musculoskeletal)? @ -prior EKG interpreted by me (3pts min.). @ -yes X-rays interpreted by me (1pt min.). @ -yes negative for acute disease CT interpreted by me (1pt min.). @ -US negative for acute disease U/S interpreted by me (1pt. min.). @ -no What testing was considered but not performed or refused? (CT, X-rays, U/S, labs)? Why? @ -none What meds were considered but not given or refused? Why? @ -none Did you discuss the management of the patient with other professionals (professionals i.e. Dr., PA, ACCESS COORDINATOR, lab, RT, psych nurse, social group worker, store stocker, teacher, combat systems officer, case making machine operator)? Give summary @ -no Was smoking cessation discussed for >3mins.? @ -no Was critical care preformed (if so, how long)? @ -yes31 Were there social determinants of health that impacted care today? How? (Homelessness, low income, unemployed, alcoholism, drug addiction, transportation, low edu. Level, literacy, decrease access to med. care, senior living, rehab)? @ -none Was there de-escalation of care discussed even if they declined (Discuss DNR or withdrawal of care, Hospice)? DNR status @ -no What co-morbidities impacted this encounter? (DM, HTN, Smoking, COPD, CAD, Cancer, CVA, ARF, Chemo, Hep., AIDS, mental health diagnosis, sleep apnea, morbid obesity)? @ -none Was patient admitted / discharged? Hospital course, mention meds given and route, prescriptions, significant lab abnormalities, going to OR and other pertinent info. @ - 84 female to be admitted for acute CVA NIH 2-4, no improvement in symptoms here in the ER patient will admit for neurology evaluation Admitted Undiagnosed new problem with uncertain prognosis? @ -no Drug Therapy requiring intensive monitoring for toxicity (Heparin, Nitro, Insulin, Cardizem)? @ -no Were any procedures done? @ -no Diagnosis/symptom? @ -Acute CVA Acute, or Chronic, or Acute on Chronic? @ -Acute Uncomplicated (without systemic symptoms) or Complicated (systemic symptoms)? @ -Complicated Side effects of treatment? @ -no Exacerbation, Progression, or Severe Exacerbation? @ -exacerbation Poses a threat to life or bodily function? How? (Chest pain, USA, DC, pneumonia, PE, COPD, DKA, ARF, appy, cholecystitis, CVA, Diverticulitis, Homicidal, Suicidal, threat to staff... and all critical care pts) @ -yes acute CVA Reevaluation #5: Differential CVA Ischemic stroke, hemorrhagic stroke, brain tumor, atypical migraine, Wernicke's encephalopathy, seizure, multiple sclerosis, meningitis, encephalitis, hypoglycemia, Guillain-Juarez, electrolytes disturbance, myasthenia gravis.... This is not meant to be an all-inclusive list - Consultations Consultation #1: Spoke with neuro interventionalists no tPA secondary to low NIH Consultation #2: Spoke with [facility] who agrees to admit this patient Critical Care Time Critical Care Time: Yes Total Critical Care Time: 31 Disposition Clinical Impression: Cerebrovascular accident (CVA) Disposition: ADMITTED IP TO THIS HOSP Condition: Stable Is patient prescribed a controlled substance at d/c from ED?: No Time of Disposition: 21:00
[2025-03-01] MEDS: methylPREDNISolone SOD SUCCI 125 MG/2 ML VIAL IV STA (19:52)
[2025-03-01] MEDS: diphenhydrAMINE 50 MG/ML 1 ML VIAL IVP STA (19:52)
[2025-03-01] MEDS: SODIUM CHLORIDE 0.9% 1,000 ML IV STA (19:52)
[2025-03-01] MEDS: FAMOTIDINE 20 MG/2 ML VIAL IV STA (19:53)
[2025-03-01 19:57] LABS: Basophils # (A) 0.02 10*3/uL (0.00-0.10); Basophils % (A) 0.4 %; Eosinophils # (A) 0.37 10*3/uL (0.04-0.35); Eosinophils % (A) 6.8 %; HCT 39.6 % (37.2-46.3); HGB 12.9 g/dL (12.0-15.0); Lymphocytes # (A) 1.45 10*3/uL (0.90-5.00); Lymphocytes % (A) 26.5 %; MCH 28.7 pg (27.0-32.0); MCHC 32.6 g/dL (32.0-37.0); MCV 88.2 fL (80.0-97.0); Mean Platelet Volume 10.8 fL (9.5-12.2); Monocytes # (A) 0.74 10*3/uL (0.20-1.00); Monocytes % (A) 13.5 %; Neutrophils % (A) 52.8 %; Platelet Count 184 10*3/uL (140-440); RBC 4.49 10*6/uL (4.10-5.20); RDW 14.4 % (11.5-14.5); WBC 5.48 10*3/uL (4.50-10.00)
[2025-03-01] MEDS: LABETALOL 5 MG/ML VIAL MDV IVP STA ×2 (20:01→21:35)
[2025-03-01 20:06] LABS: Partial Thromboplastin Time 22.6 sec (22.0-30.0)
[2025-03-01 20:07] LABS: ALT 14 U/L (4-34); AST 26 U/L (14-36); African American GFR (CKD) 67 (>60 ml/min/1.73 sqM); Albumin 3.9 g/dL (3.5-5.0); Alkaline Phosphatase 86 U/L (38-126); Anion Gap 7 mmol/L; Blood Urea Nitrogen 18 mg/dL (7-17); Calcium 9.4 mg/dL (8.4-10.2); Carbon Dioxide 26 mmol/L (22-30); Chloride 104 mmol/L (98-107); Creatine Kinase 38 U/L (30-135); Glucose 96 mg/dL (74-99); Non-African American GFR(CKD) 58 (>60 ml/min/1.73 sqM); Potassium 3.8 mmol/L (3.5-5.1); Sodium 137 mmol/L (137-145); Total Bilirubin 0.6 mg/dL (0.2-1.3); Total Protein 5.9 g/dL (6.3-8.2)
[2025-03-01 20:22] LABS: Appearance,Urine Clear (Clear); Bacteria,Urine Occasional /hpf; Bilirubin,Urine Negative (Negative); Blood,Urine Negative (Negative); Budding Yeast,Urine Rare /hpf; Color,Urine Colorless; Glucose,Urine (UA) Negative (Negative); Ketones,Urine Negative (Negative); Leukocyte Esterase,Urine Small (Negative); Mucus,Urine Rare /hpf; Nitrite,Urine Negative (Negative); PH, Urine 6.5 (5.0-8.0); Protein,Urine Negative (Negative); RBC,Urine 1 /hpf (0-5); Specific Gravity,Urine 1.006 (1.001-1.035); Squamous Epithelial Cell,Urine 2 /hpf (0-4); Urobilinogen,Urine <2.0 mg/dL (<2.0); WBC,Urine 6 /hpf (0-5)
--- NOTE | 2025-03-01 20:31 | CT ---
EXAMINATION TYPE: CT brain wo con DATE OF EXAM: 03/01/2025 8:20 PM COMPARISON: Prior CT head studies, most recently dated 08/12/2024. CLINICAL INDICATION: Female, 84 years old with history of Neuro deficit, acute, stroke suspected, cva TECHNIQUE: Brain: Axial CT images of the brain were obtained with coronal and sagittal reformats created and rev iewed. Contrast used: None. Oral contrast used: None. CT DLP: 1418.1 mGycm, Automated exposure control for dose reduction was used. FINDINGS: Brain: Extra-axial spaces: No abnormal extra-axial fluid collections. Ventricular system: Dilatation in proportion to cerebral atrophy. Cerebral parenchyma: No acute intraparenchymal hemorrhage or mass effect. The zhong-white junction is well differentiated. Scattered hypoattenuating areas are seen within the white matter. Cerebellum: Unremarkable. Mass effect: No evidence of midline shift. Intracranial vasculature: unremarkable Soft tissues: Normal. Calvarium/osseous structures: No depressed skull fracture. Paranasal sinuses and mastoid air cells: Mild scattered paranasal sinus disease. Visualized orbits: Orbital contents are intact. IMPRESSION: No acute intracranial process. [facility], , 03/01/2025 8:29 PM
--- NOTE | 2025-03-01 20:40 | XR ---
EXAMINATION TYPE: XR chest 2V DATE OF EXAM: 03/01/2025 8:33 PM COMPARISON: Radiograph dated 08/12/2024. CLINICAL INDICATION: Female, 84 years old with history of altered mental status; [facility] TECHNIQUE: XR chest 2V Frontal and lateral views of the chest. FINDINGS: Lungs/Pleura: There is no evidence of pleural effusion, focal consolidation, or pneumothorax. Pulmonary vascularity: Unremarkable. Heart/mediastinum: Cardiomediastinal silhouette is unremarkable. Musculoskeletal: No acute osseous pathology. Other findings: None IMPRESSION: No acute cardiopulmonary disease/process. [facility], , 03/01/2025 8:37 PM
--- NOTE | 2025-03-01 20:46 | CT ---
EXAMINATION TYPE: CT angio head neck DATE OF EXAM: 03/01/2025 8:33 PM COMPARISON: Previous CT angiogram study dated 08/12/2024.. CLINICAL INDICATION: Female, 84 years old with history of Neuro deficit, acute, stroke suspected; PHH , cva TECHNIQUE: Axially acquired helical CT angiogram of the head and neck was obtained with contrast. Axi al images are supplemented with 3D reconstructions and MIP images which were post-processed at an in dependent workstation. NASCET criteria used. Contrast used:65cc mL of Isovue 370 with IV Contrast, Oral contrast used: None. CT DLP: 608.6 mGycm, Automated exposure control for dose reduction was used. FINDINGS: CTA HEAD: No evidence of acute intracranial hemorrhage, mass effect, or midline shift. The ventricles, sulci, a nd cisterns are unremarkable. Vertebral arteries: The vertebral arteries are patent. Vertebral artery dominance: Right Basilar artery: The basilar artery is intact. The basilar artery bifurcation is normal. Internal Carotid arteries: The cervical, petrous, cavernous and supraclinoid segments are without kaley w-limiting stenosis. ANUPAMA: Patent with no evidence of aneurysm. ACOM: Present without evidence of aneurysm. MCA: Patent with no evidence of aneurysm. BOAT TENDER: Patent with no evidence of aneurysm. 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 origin of the left BOAT TENDER. Dural sinuses: Patent. CTA NECK: Right Carotid System: The common carotid and external carotid arteries are patent. There is less than 25% stenosis at the c arotid bifurcation secondary to calcified/noncalcified plaque. The rest of the internal carotid arter y is patent. Left Carotid System: The common carotid and external carotid arteries are patent. There is less than 25% stenosis at the c arotid bifurcation secondary to calcified/noncalcified plaque. The rest of the internal carotid arter y is patent. Vertebral arteries are patent without evidence hemodynamically significant stenosis. There is a common origin of the right brachycephalic and left common carotid artery with patency of t he major vascular branches. No evidence of hemodynamically significant stenosis. Upper thorax: IMPRESSION: 1. No evidence of dissection of the cervical internal carotid arteries or vertebral arteries. 2. No any evidence of significant stenosis at the carotid bifurcations. 3. No evidence of intracranial high-grade stenosis or intracranial aneurysm. [facility], , 03/01/2025 8:44 PM
[2025-03-01] MEDS: ATORVASTATIN 80 MG TAB PO SCH (21:30)
[2025-03-01] MEDS: ASPIRIN 325 MG TAB PO STA (21:34)
[2025-03-01] MEDS: SODIUM CHLORIDE 0.9% 1,000 ML IV SCH (21:34)
[2025-03-02] MEDS: LABETALOL 5 MG/ML VIAL MDV IVP STA (03:12)
[2025-03-02] MEDS: ASPIRIN 325 MG TAB PO SCH (08:15)
[2025-03-02 09:07] LABS: Chol/HDL Ratio 2.26 Ratio; LDL Cholesterol,Calculated 50.6 mg/dL (0.0-131.0); VLDL Calculation 7.88 mg/dL (5.00-40.00)
[2025-03-02] MEDS: DULoxetine HCL 60 MG CAPSULE.DR PO SCH (12:22)
[2025-03-02] MEDS: PANTOPRAZOLE 40 MG TABLET PO SCH (12:22)
[2025-03-02] MEDS: CLOPIDOGREL 75 MG TAB PO SCH (12:22)
[2025-03-02] MEDS: DONEPEZIL 5 MG TAB PO SCH (12:22)
--- NOTE | 2025-03-02 12:38 | CA ---
Transthoracic Echo Report Name: Miranda Owens Age: 84 Gender: F : 1940 Exam Date: 03/02/2025 10:56 Exam Location: [facility] Ht (in): 64 Wt (lb): 210 Ordering Physician: Josr Galindo DO Attending/Referring Phys: [id number], Mateo Software Verification Engineer Salima Mcknight RDCS Procedure CPT: Indications: Thrombus Cardiac Hx: Technical Quality: Fair Contrast 1: Total Dose (mL): Contrast 2: Total Dose (mL): MEASUREMENTS (Male / Female) Normal Values 2D ECHO LV Diastolic Diameter PLAX 4.5 cm 4.2 - 5.9 / 3.9 - 5.3 cm LV Systolic Diameter PLAX 3.0 cm IVS Diastolic Thickness 1.2 cm 0.6 - 1.0 / 0.6 - 0.9 cm LVPW Diastolic Thickness 1.1 cm 0.6 - 1.0 / 0.6 - 0.9 cm LV Relative Wall Thickness 0.5 LVOT Diameter 2.2 cm LV Diastolic Volume MOD BP 100.9 cm??? 67 - 155 / 56 - 104 cm??? LV Systolic Volume MOD BP 38.3 cm??? 22 - 58 / 19 - 49 cm??? LV Ejection Fraction MOD BP 62.0 % >= 55 % LV Cardiac Index MOD BP 1980.3 cm???/min???m??? LV Diastolic Volume MOD 4C 107.0 cm??? LV Systolic Volume MOD 4C 42.2 cm??? LV Ejection Fraction MOD 4C 60.6 % LV Cardiac Index MOD 4C 2051.7 cm???/min???m??? LV Diastolic Length 4C 7.5 cm LV Systolic Length 4C 6.1 cm LV Diastolic Volume MOD 2C 92.3 cm??? LV Systolic Volume MOD 2C 34.0 cm??? LV Ejection Fraction MOD 2C 63.1 % LV Cardiac Index MOD 2C 1844.7 cm???/min???m??? LV Diastolic Length 2C 7.3 cm LV Systolic Length 2C 5.8 cm LA Volume 52.0 cm??? 18 - 58 / 22 - 52 cm??? LA Volume Index 24.6 cm???/m??? 16 - 28 cm???/m??? DOPPLER AV Peak Velocity 165.5 cm/s AV Peak Gradient 11.0 mmHg AV Mean Velocity 115.3 cm/s AV Mean Gradient 5.8 mmHg AV Velocity Time Integral 34.4 cm LVOT Peak Velocity 98.7 cm/s LVOT Peak Gradient 3.9 mmHg LVOT Velocity Time Integral 18.3 cm LVOT Stroke Volume 67.1 cm??? LVOT Stroke Volume Index 33.6 ml/m??? LVOT Cardiac Index 2124.7 cm???/min???m??? AV Area Cont Eq vti 1.9 cm??? AV Area Cont Eq pk 2.2 cm??? MV Area PHT 4.8 cm??? Mitral E Point Velocity 78.8 cm/s Mitral A Point Velocity 135.6 cm/s Mitral E to A Ratio 0.6 MV Deceleration Time 158.8 ms TR Peak Velocity 221.8 cm/s TR Peak Gradient 19.7 mmHg Right Atrial Pressure 5.0 mmHg Pulmonary Artery Systolic Pressu 24.7 mmHg Right Ventricular Systolic Press 24.7 mmHg PV Peak Velocity 97.1 cm/s PV Peak Gradient 3.8 mmHg FINDINGS Left Ventricle Left ventricular ejection fraction is estimated at 55 to 60 %.Normal left ventricular systolic function with no obvious regional wall motion abnormalities. Mildly increased left ventricular wall thickness. Left ventricular cavity size normal. Right Ventricle Normal right ventricular size and function. Unable to estimate the right ventricular systolic pressure. Right Atrium Right atrium not well visualized. Left Atrium Normal left atrial size. Mitral Valve Structurally normal mitral valve. No evidence for mitral valve prolapse. No mitral stenosis. Mild mitral regurgitation. Aortic Valve Trileaflet aortic valve. No aortic valve stenosis or regurgitation. Tricuspid Valve Structurally normal tricuspid valve. No tricuspid stenosis. Trace to mild tricuspid regurgitation. Pulmonic Valve Pulmonic valve not well visualized. No pulmonic stenosis. No pulmonic regurgitation. Pericardium Trace pericardial effusion. Aorta Normal size aortic root and proximal ascending aorta. CONCLUSIONS 1. Normal left ventricular size and systolic function 2. Mild mitral regurgitation Previewed by: Dr. Delroy Medellin MD (Electronically Signed) Final Date: 02 March 2025 12:37
--- NOTE | 2025-03-02 14:37 | P.CNNES ---
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 She is accompanied with her who provides some of the history. He states that her symptoms began yesterday between 6 and 7 PM in which she had left facial droop, she could not get the words out and was slurring her speech. Lasted for a few hours. He feels she is doing better today. Per the nurse she is having some owning and at times waxing and waning of her confusion. 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 She had a fall that resulted in ankle surgery. She does not have any history of stroke or seizures in the past. She is on aspirin at home. According to stated earlier she is doing better. Patient kept on st ating that she fell that is why she came to the hospital but according to the she did not fall and she is referring to her prior fall that occurred in August 2024. Some of the workup during this hospital visit consisted of: General Is triglycerides 39, cholesterol is 105, LDL is 50 and HDL is 46 I reviewed the rest of the lab workup CT of the head is reported as no acute intracranial process. I personally reviewed the CT and agree with the report. CT angiography of the head and neck is reported as no evidence of dissection of cervical internal carotid artery or vertebral artery. No any evidence of significant stenosis at the carotid bifurcation. No evidence of intracranial high-grade stenosis or intracranial aneurysm. Review of Systems As per HPI. Past Medical History Past Medical History: Asthma, COPD, Eye Disorder, Hypertension, Musculoskeletal Disorder, Osteoarthritis (OA) Additional Past Medical History / Comment(s): Sarcoidosis. BILAT CATARACTS - History of Any Multi-Drug Resistant Organisms: None Reported Past Surgical History: Cholecystectomy, Hernia Repair, Tonsillectomy Additional Past Surgical History / Comment(s): 2 Br Biopsies Past Anesthesia/Blood Transfusion Reactions: Motion Sickness Past Psychological History: No Psychological Hx Reported Past Alcohol Use History: None Reported Past Drug Use History: None Reported - Past Family History Mother Family Medical History: Cancer Additional Family Medical History / Comment(s): breast Medications and Allergies Home Medications Medication Instructions Recorded Confirmed Type Clopidogrel [Plavix] 75 mg PO DAILY 08/12/24 03/02/25 History DULoxetine HCL [Cymbalta] 60 mg PO DAILY 08/12/24 03/02/25 History Pantoprazole Sodium [Protonix] 40 mg PO DAILY 08/12/24 03/02/25 History Atorvastatin [Lipitor] 20 mg PO DAILY 03/02/25 03/02/25 History Rivastigmine Tartrate [Exelon] 1.5 mg PO BID-W/MEALS 03/02/25 03/02/25 History Allergies Allergy/AdvReac Type Severity Reaction Status Date / Time Iodinated Contrast Media Allergy Dyspnea Verified 03/02/25 09:27 [Iodinated Contrast Media - IV Dye] latex Allergy Dyspnea Verified 03/02/25 09:27 shellfish derived [Shellfish] Allergy Dyspnea Verified 03/02/25 09:27 Physical Examination - Vital Signs Vital Signs: Vital Signs Temp Pulse Resp BP Pulse Ox 03/02/25 12:39 89 18 96 03/02/25 12:27 90 18 114/82 95 03/02/25 11:35 73 18 158/73 97 03/02/25 10:27 86 18 180/87 98 03/02/25 10:00 74 18 185/93 98 03/02/25 09:27 76 18 99 03/02/25 09:00 87 18 98 03/02/25 08:27 89 18 153/76 97 03/02/25 08:00 98.5 F 84 18 138/94 97 03/02/25 06:14 72 16 129/80 97 03/02/25 04:00 62 15 156/80 93 L 03/02/25 03:00 65 16 141/73 94 L 03/02/25 01:00 69 16 160/76 95 03/01/25 20:45 69 186/118 96 03/01/25 19:40 98.1 F 75 18 174/106 98 Intake and Output 03/01/25 03/02/25 03/02/25 22:59 06:59 14:59 Other: Weight 95.254 kg GENERAL: The patient is lying in bed and is not in acute distress. NEUROLOGICAL: Higher mental function: The patient is awake, alert, oriented to self, and co rrectly stated she is in the hospital but does not known name. She correctly states current year but states the month is June. Correctly names objects (pen and watch). Patient is following commands. No aphasia and no neglect. Cranial nerves: The pupils are round, equal and reactive to light and accommodation. Visual pineda are full to confrontation throughout. Extraocular movement is intact no nystagmus is noted. Facial sensation is normal to touch throughout. The facial strength is normal throughout. Hearing is mild to moderately decreased bilaterally to hand rub. Tongue is midline and moved [id number] without any difficulty. No dysarthria is noted. Shoulder shrug is normal bilaterally. Motor: The strength is lifting all extremities above gravity equally. Normal tone and bulk. Cerebellum: Normal finger to nose bilaterally. Sensation: Sensation is normal to touch throughout. Plantars are downgoing bilaterally. Results - Laboratory Findings CBC and BMP: 03/01/25 19:45 03/01/25 19:45 Abnormal Lab Findings: Abnormal Labs 03/01/25 03/01/25 03/01/25 19:45 19:45 20:00 Eosinophils # 0.37 H BUN 18 H Total Protein 5.9 L Ur Leukocyte Esterase Small H Urine WBC 6 H Urine Bacteria Occasional H Urine Mucus Rare H Urine Yeast (Budding) Rare H Assessment and Plan Assessment: This is an 84-year-old woman that presents to the hospital because of left facial droop, speech difficulty and slurring her speech. Her symptoms began yesterday and lasted few hours. Probable transient ischemic attack. Episode of confusion likely delirium History of traumatic subarachnoid hemorrhage in August 2024 and did not require any intervention. History of left ankle fracture from a fall Plan: The patient states she is on aspirin 81 mg daily at home but according to her home medications she is on Plavix 75 mg daily. She was placed on dual antiplatelets of aspirin 81 and Plavix 75 mg and from a neurologic perspective she only needs to be on monotherapy so if she was truly on aspirin then she needs to be on Plavix or vice versa. This was relayed to primary team. She was placed on Lipitor 80 mg nightly for secondary stroke prophylaxis by the ED team and from neurology perspective that can be decreased to 40 mg nightly I ordered MRI of the brain If she continues to have confusion then I will pursue routine EEG. I ordered TSH, vitamin B12, folate, ammonia level because of her episodes of confusion Continue neurochecks Cardiac monitoring 2D echo was ordered and is pending PT OT and CRM MARKETING ANALYST are consulted Will defer the rest of the medical management to primary other specialist DVT prophylaxis: started patient on subcu heparin 5000 units every 12 hours Plan discussed with the patient, her is at bedside and the primary team as well as her nurse. Thank you for the consultation. Time with Patient: Greater than 30
[2025-03-02] MEDS: HALOPERIDOL LACTATE 5 MG/ML 1 ML VIAL IVP PRN (15:38)
--- NOTE | 2025-03-02 16:39 | P.HPIM ---
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 She is accompanied with her who provides some of the history. He states that her symptoms began yesterday between 6 and 7 PM in which she had left facial droop, she could not get the words out and was slurring her speech. The symptoms lasted for few hours and improved while in the emergency room. He feels she is doing better today. At this time she is having some element of sundowning and worsening hallucinations seeing cats and people were not present. 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 where she was observed for 17 days and had no intervention. She does not have any history of stroke or seizures in the past. Spoke with patient's daughter who attested to taking aspirin in the morning and Plavix in the evening. At this time weakness and slurred speech seems to have improved, which agrees. She also is confused as to reason she is in the hospital and continues to say it is due to fall at home. She is denying other symptoms at this time of chest pain, shortness of breath, dizziness, weakness. Spoke with the ER physician, patient admission was accepted by internal medicine service for treatment. REVIEW OF SYSTEMS: Pertinent positives and negatives noted in HPI. PHYSICAL EXAMINATION: Vitals reviewed GENERAL: Resting comfortably in bed. Obese. EYES: PERRL, no scleral injection or icterus. No vision loss HENT: Normocephalic, atraumatic, hearing grossly intact, moist mucous membranes NECK: No tracheal deviation, full range of motion. CARDIOVASCULAR: S1 and S2 present. No murmurs, rubs, or gallops. PULMONARY: Chest is clear to auscultation, no wheezing, rhonchi, or crackles. ABDOMEN: Soft, nontender, nondistended. No palpable organomegaly. MUSCULOSKELETAL: No apparent joint swelling and deformities. EXTREMITIES: No apparent cyanosis, clubbing. No pedal edema. NEUROLOGICAL: Alert and oriented x2 to person and time. 5/5 strength in upper and lower extremities, CN II through XII with no deficits noted. SKIN: No apparent rashes. ER FINDINGS: Labs significant for CBC and CMP mostly unremarkable, troponins negative, TSH is WNL UA small LE, lipid panel is WNL EKG independently interpreted showed sinus rhythm heart rate of 75, QTc 391, no ST segment elevation or depression seen, no T-wave inversions seen. Chest x-ray done independently interpreted showed no acute cardiopulmonary process. CT brain independently interpreted showed no acute intracranial process. CTA head and neck done independently interpreted showed no significant stenosis, aneurysm or thrombus in the intracranial circulation. Echocardiogram with findings of LVEF 55 to 60%, normal LV size and function Assessment and Plan: In summary, patient is a 84-year-old female with history of traumatic s ubarachoid hemorrhage in August 2024 presents emergency department because of left facial droop, speech difficulty and slurring of the words. #Acute CVA, likely TIA #History of delirium #History of traumatic subarachnoid hemorrhage in August 2024 and did not require any intervention. #History of left ankle fracture from a fall CT brain and CT angiogram of the brain were unremarkable - Echocardiogram reviewed - Failed Daily Plavix and aspirin at home, will resume aspirin 81 mg daily and lipitor 40 mg qd MRI brain pending - Fall precautions Begin Haldol 1 g every 4 hour for delirium Continue neurochecks Continue cardiac monitoring - consult PT, OT, SOLAR ENERGY SYSTEMS DESIGNER for evaluation Neurology consulted Chronic Medical Conditions #Dementia #COPD #GERD #neuropathy Resume home medications DVT ppx: Subq heparin 5000 units twice daily Code status: Full code F: P.o. E: Replete as needed N: Heart healthy diet Anticipated discharge place: Home Anticipated discharge time: [address] Champion seen patient with resident, present during exam, and agreed with findings. Dictation was produced using GeoVario dictation software. Please excuse any grammatical, word or spelling errors. Past Medical History Past Medical History: Asthma, COPD, Eye Disorder, Hypertension, Musculoskeletal Disorder, Osteoarthritis (OA) Additional Past Medical History / Comment(s): Sarcoidosis. BILAT CATARACTS - History of Any Multi-Drug Resistant Organisms: None Reported Past Surgical History: Cholecystectomy, Hernia Repair, Tonsillectomy Additional Past Surgical History / Comment(s): 2 Br Biopsies Past Anesthesia/Blood Transfusion Reactions: Motion Sickness Past Psychological History: No Psychological Hx Reported Past Alcohol Use History: None Reported Past Drug Use History: None Reported - Past Family History Mother Family Medical History: Cancer Additional Family Medical History / Comment(s): breast Medications and Allergies Home Medications Medication Instructions Recorded Confirmed Type Clopidogrel [Plavix] 75 mg PO DAILY 08/12/24 03/02/25 History DULoxetine HCL [Cymbalta] 60 mg PO DAILY 08/12/24 03/02/25 History Pantoprazole Sodium [Protonix] 40 mg PO DAILY 08/12/24 03/02/25 History Atorvastatin [Lipitor] 20 mg PO DAILY 03/02/25 03/02/25 History Rivastigmine Tartrate [Exelon] 1.5 mg PO BID-W/MEALS 03/02/25 03/02/25 History Allergies Allergy/AdvReac Type Severity Reaction Status Date / Time Iodinated Contrast Media Allergy Dyspnea Verified 03/02/25 09:27 [Iodinated Contrast Media - IV Dye] latex Allergy Dyspnea Verified 03/02/25 09:27 shellfish derived [Shellfish] Allergy Dyspnea Verified 03/02/25 09:27 Physical Exam Vitals: Vital Signs Temp Pulse Resp BP Pulse Ox 03/02/25 08:00 98.5 F 84 18 138/94 97 03/02/25 06:14 72 16 129/80 97 03/02/25 04:00 62 15 156/80 93 L 03/02/25 03:00 65 16 141/73 94 L 03/02/25 01:00 69 16 160/76 95 03/01/25 20:45 69 186/118 96 03/01/25 19:40 98.1 F 75 18 174/106 98 Intake and Output 03/01/25 03/02/25 03/02/25 22:59 06:59 14:59 Other: Weight 95.254 kg Results CBC & Chem 7: 03/01/25 19:45 03/01/25 19:45 Labs: Abnormal Lab Results - Last 24 Hours (Table) 03/01/25 03/01/25 03/01/25 Range/Units 19:45 19:45 20:00 Eosinophils # 0.37 H (0.04-0.35) 10*3/uL BUN 18 H (7-17) mg/dL Total Protein 5.9 L (6.3-8.2) g/dL Ur Leukocyte Esterase Small H (Negative) Urine WBC 6 H (0-5) /hpf Urine Bacteria Occasional H (None) /hpf Urine Mucus Rare H (None) /hpf Urine Yeast (Budding) Rare H (None) /hpf
[2025-03-02 20:44] VITALS: RESP 18
[2025-03-02] MEDS: HEPARIN SODIUM,PORCINE 5,000 UNIT/ML 1 ML VIAL SQ SCH (21:02)
[2025-03-02] MEDS ORDERED: QUEtiapine 25 MG TAB PO PRN (23:26)
[2025-03-03] MEDS ORDERED: ACETAMINOPHEN TAB 325 MG TAB PO PRN (09:30)
[2025-03-03] MEDS: LORazepam 1 MG/0.5 ML VIAL IV STA (09:36)
[2025-03-03] MEDS: ASPIRIN 81 MG PO SCH (10:00)
--- NOTE | 2025-03-03 10:56 | MR ---
INDICATION: Patient age:Female; 84 years old; Reason for study: stroke. dysarthria and right sided weakness; PHH. COMPARISON: CT brain 03/01/2025, CTA head and neck 08/12/2024, 03/01/2025, CT brain C-spine 08/12/2024. TECHNIQUE: Multi planar, multi sequence imaging was performed through the brain without the administr ation of intravenous contrast. FINDINGS: Motion degraded exam. The zhong-white junctions appear unremarkable. The ventricular system and basal cisterns appear unrema rkable for level of age-related cerebral atrophy. Diffusion-weighted imaging shows no evidence of res tricted diffusion to suggest acute/subacute infarct. Intracranial arterial flow voids are maintained. Midline structures show no abnormality. Confluent areas of high T2/FLAIR signal intensity are seen w ithin the periventricular and subcortical white matter. The susceptibility weighted images adjacent f oci of blooming artifact within the left cerebellum, right basal ganglia, and right temporal lobe fro m prior hemosiderin deposition. After administration of gadolinium, no abnormal enhancement is seen. The bone marrow signal is within normal limits. The paranasal sinuses are unremarkable. Bilateral ap hakia. Trace left mastoid effusion. IMPRESSION: Motion degraded examination. 1. No evidence of intracranial mass or acute/subacute infarct. 2. Advanced nonspecific white matter changes, likely related to small vessel ischemic disease. [facility], , 03/03/2025 10:54 AM
[2025-03-03 12:16] VITALS: PULSE 65; TEMP 98
--- NOTE | 2025-03-03 12:41 | P.PN ---
Subjective Progress Note Date: 03/03/25 I am following-up with patient and per who is at bedside she is doing much better. Per the nurse she is not hallucinating today compared to yesterday when she was in the ER. It seems at home she was on ASA and Plavix that her daughter notified the resident. Objective - Vital Signs Vital signs: Vital Signs Temp 98 F 03/03/25 12:00 Pulse 65 03/03/25 12:00 Resp 18 03/03/25 12:00 BP 180/84 03/03/25 12:00 Pulse Ox 92 L 03/03/25 12:00 FiO2 Intake & Output 03/02/25 03/03/25 03/03/25 18:59 06:59 18:59 Output Total 300 Balance -300 Weight 95.254 kg 94 kg Output: Urine 300 Other: Voiding Method External Catheter - Exam General: Lying in bed and is not in acute distress. Neuro: Somewhat limited since was sleeping. But she was awakeable and oriented to self, place and time. Is following simple commands. No facial weakness or dysarthria. Some of the workup during this hospital visit consisted of: Lipid panel Is triglycerides 39, cholesterol is 105, LDL is 50 and HDL is 46 Ammonia <9 B12: 19 Serum folate: 12.5 TSH: 0.855 CT of the head is reported as no acute intracranial process. I personally reviewed the CT and agree with the report. CT angiography of the head and neck is reported as no evidence of dissection of cervical internal carotid artery or vertebral artery. No any evidence of significant stenosis at the carotid bifurcation. No evidence of intracranial high-grade stenosis or intracranial aneurysm. MRI Brain: No evidence of intracranial mass or acute/subacute infarct. Advanced nonspeicific white matter changes, likely related to small vessel ischemic disease. 2D echo: Normal LV size and systolic funciton. Mild mitral regurgitation. - Labs CBC & Chem 7: 03/01/25 19:45 03/01/25 19:45 Labs: Abnormal Lab Results - Last 24 Hours (Table) 03/02/25 Range/Units 14:46 Vitamin B12 190.0 L (200.0-944.0) pg/mL Assessment and Plan Assessment: This is an 84-year-old woman that presents to the hospital because of left facial droop, speech difficulty and slurring her speech. Her symptoms began yesterday and lasted few hours. Probable transient ischemic attack. MRI Brain is negative for acute process. Episode of confusion likely delirium due to multifactorial: Has B12 deficiency, hospital induced and possibly due to dementia--today is better. 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 History of left ankle fracture from a fall Assume underlying dementia and patient is on Aricept at home Plan: Per the primary team, patient is on ASA and Plavix at home. Therefore, from neurological perspective change Plavix to Brilinta 90mg bid. No need for dual antiplatelets since can increase risk for bleed especially with prior fall and hx of Traumatic SAH. This was relayed to primary team. She is on Lipitor 80mg qhs and from neurological perspective can be lowered down to 40mg qhs to avoid side-effects of medications unless primary feels otherwise. Current EEG: Preliminary is negative for sieuzre. For her B12 deficiency will defer correction to primary team. Recommend repeat B12 level within 3-4 weeks as outpatient to reassess level. Recommend neuropsych evaluation as outpatient for detailed memory testing. If she continues to have confusion consider repeating EEG. Continue neurochecks Cardiac monitoring PT OT and BELT DRESSER are consulted Will defer the rest of the medical management to primary other specialist DVT prophylaxis: started patient on subcu heparin 5000 units every 12 hours Upon discharge, recommend the patient to follow-up with neurologist as outpa tient within 2-3 weeks. Plan discussed with the patient, her is at bedside and the primary team as well as her nurse. Time with Patient: Less than 30
--- NOTE | 2025-03-03 13:13 | P.DS ---
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 #Delirium #History of left ankle fracture from a fall #B12 deficiency #Dementia #COPD #GERD #neuropathy Hospital course; History of present illness; Patient is a 84-year-old female with dementia, COPD, neuropathy with a history of traumatic subarachoid hemorrhage in August 2024 presents emergency department because of left facial droop, speech difficulty and slurring of the words. She is accompanied with her who provides some of the history. He states that her symptoms began yesterday between 6 and 7 PM in which she had left facial droop, she could not get the words out and was slurring her speech. The symptoms lasted for few hours and improved while in the emergency room. He feels she is doing better today. At this time she is having some element of sundowning and worsening hallucinations seeing cats and people were not present. She has previous history of traumatic subarachnoid hemorrhage in August 2024 was seen here and subsequently transferred to [facility] where she was observed for 17 days and had no intervention. She does not have any history of stroke or seizures in the past. Spoke with patient's daughter who attested to taking aspirin in the morning and Plavix in the evening. At this time weakness and slurred speech seems to have improved, which agrees. She also is confused as to reason she is in the hospital and continues to say it is due to fall at home. She is denying other symptoms at this time of chest pain, shortness of breath, dizziness, weakness. -CT brain independently interpreted showed no acute intracranial process. MRI brain negative for acute process -CTA head and neck done independently interpreted showed no significant stenosis, aneurysm or thrombus in the intracranial circulation. -Echocardiogram with findings of LVEF 55 to 60%, normal LV size and function During hospital stay patient was treated for TIA. Patient was seen by neurology recommended Lipitor 40 mg nightly and beginning Brilinta 90 mg twice daily. Discontinue aspirin and Plavix. Pulmonary EEG negative for seizures. Also consider repeat EEG for detailed memory testing and worsening delirium and hallucinations during hospital stay. Recommend follow-up with outpatient neurologist in 2 to 3 weeks. For B12 deficiency recommending B12 supplementation. Patient is discharged home in stable condition. Continue above recommended medication changes. Follow-up with PCP, and neurology. Recommend B12 supplementation. PHYSICAL EXAMINATION: Vitals reviewed GENERAL: Resting comfortably in bed. Obese. CARDIOVASCULAR: S1 and S2 present. No murmurs, rubs, or gallops. PULMONARY: Chest is clear to auscultation, no wheezing, rhonchi, or crackles. ABDOMEN: Soft, nontender, nondistended. No palpable organomegaly. MUSCULOSKELETAL: No apparent joint swelling and deformities. EXTREMITIES: No apparent cyanosis, clubbing. No pedal edema. NEUROLOGICAL: Alert and oriented x3. 5/5 strength in upper and lower extremities, CN II through XII with no deficits noted. SKIN: No apparent rashes. Dr. Champion seen patient with resident, present during exam, and agreed with findings. Dictation was produced using [employer] dictation software. please excuse any grammatical, word or spelling errors. Patient Condition at Discharge: Stable Plan - Discharge Summary Discharge Rx Participant: Yes New Discharge Prescriptions: New Ticagrelor [Brilinta] 90 mg PO BID #90 tab Atorvastatin Calcium [Lipitor] 40 mg PO HS #60 tab Continue RX: DULoxetine HCL [Cymbalta] 60 mg PO DAILY RX: Pantoprazole Sodium [Protonix] 40 mg PO DAILY RX: Rivastigmine Tartrate [Exelon] 1.5 mg PO BID-W/MEALS Discontinued RX: Clopidogrel [Plavix] 75 mg PO DAILY Atorvastatin [Lipitor] 20 mg PO DAILY Discharge Medication List RX: DULoxetine HCL [Cymbalta] 60 mg PO DAILY 08/12/24 [History] RX: Pantoprazole Sodium [Protonix] 40 mg PO DAILY 08/12/24 [History] RX: Rivastigmine Tartrate [Exelon] 1.5 mg PO BID-W/MEALS 03/02/25 [History] Atorvastatin Calcium [Lipitor] 40 mg PO HS #60 tab 03/03/25 [Rx] Ticagrelor [Brilinta] 90 mg PO BID #90 tab 03/03/25 [Rx] Follow up Appointment(s)/Referral(s): Cleveland Burden MD [Primary Care Provider] - 1-2 days Patient Instructions/Handouts: Transient Ischemic Attack (DC) Activity/Diet/Wound Care/Special Instructions: Patient to begin Brilinta 90 mg twice daily, and begin atorvastatin 40 mg nightly. Discontinue daily aspirin and Plavix. Follow-up with PCP and neurology. Discharge Disposition: HOME SELF-CARE
[2025-03-03 15:20] VITALS: BP 163/80
--- NOTE | 2025-03-03 21:19 | EEG ---
ELECTROENCEPHALOGRAM REPORT CLINICAL HISTORY: This is an 84-year-old woman with altered mental status. The video EEG is obtained to evaluate for seizure epileptiform activity. RELEVANT MEDICATIONS: 1. Haldol. 2. Seroquel. 3. Ativan. EEG TYPE: This is a routine 21-channel EEG with video using the 10/20 electrode placement system. DESCRIPTION: Wakefulness and drowsiness are obtained. During awake state, posterior-dominant rhythm consists of [id number] voltage of 8.5 to 9.5 hertz activity. There was no physiological stage 2 sleep architecture. There is no focal slowing. Interictal and ictal is none. ACTIVATION PROCEDURE: Photic stimulation did not evoke a posterior driving response. There is no abnormality during the photic stimulation. Hyperventilation is not performed. CLINICAL INTERPRETATION: This is a normal routine EEG during awake and drowsy state. There is no focal slowing, epileptiform discharge, or seizure on the EEG. A normal routine EEG does not rule out underlying epilepsy. Clinical correlation is recommended. MMCHARIS / MARIA GUADALUPEN: [id number] /
--- NOTE | 2025-03-05 05:43 | CDI ---
Documentation Clarification Form Date: 03/05/2025 05:32:29 AM From: Nicolasa Hand Admit Date: 03/01/2025 09:19:00 PM Patient Name: Miranda Owens Visit Number: [id number] Discharge Date: 03/03/2025 03:31:00 PM ATTENTION: The Clinical Documentation Specialists (CDI) and [facility] Coding Staff appreciate your assistance in clarifying documentation. Please respond to the clarification below the line at the bottom and electronically sign. The CDI & [facility] Coding staff will review the response and follow-up if needed. Please note: Queries are made part of the Legal Health Record. If you have any questions, please contact the author of this message via ITS. Doctor/Provider: Arie Champion Conflicting documentation has been found in the medical record. As attending physician, please provide clarification. H and P and DCS "Acute CVA" H and P and DCS "Likely TIA" History/Risk Factors: History of Traumatic subarachnoid hemorrhage in August 2024, dementia, delirium, left facial droop and slurred speeach. Clinical Indicators: Brain MRI no evidence of intracranial mass or acute infarct Treatment: Neuro consult with neuro checks. Place on monotherapy either aspirin or Plavix, Subcu Heparin 5000 unitis every 12 hours. Please clarify which diagnosis is most appropriate: [ ] Acute CVA [ x ] TIA [ ] Other (please specify) [ ] Unable to determine MTDD
== END 2025-03-03 15:31 | disposition home or self-care (01) | DRG 69 ==
LOC: EC 19:35 → 3SCARD 21:19
PROVIDERS: ADMIT Hospitalist; ATTEND Hospitalist
DX: G45.9 Transient cerebral ischemic attack, unspecified (principal); F05 Delirium due to known physiological condition; F03.90 Unspecified dementia, unspecified severity, without behavioral disturbance, psychotic disturbance, mood disturbance, and anxiety; J44.89 Other specified chronic obstructive pulmonary disease; I10 Essential (primary) hypertension; S82.892D Other fracture of left lower leg, subsequent encounter for closed fracture with routine healing; E53.8 Deficiency of other specified B group vitamins; D86.9 Sarcoidosis, unspecified; G62.9 Polyneuropathy, unspecified; M19.90 Unspecified osteoarthritis, unspecified site; K21.9 Gastro-esophageal reflux disease without esophagitis; R29.810 Facial weakness; R47.9 Unspecified speech disturbances; R29.704 NIHSS score 4; Z91.81 History of falling; Z79.02 Long term (current) use of antithrombotics/antiplatelets; Z79.82 Long term (current) use of aspirin; Z79.899 Other long term (current) drug therapy; Z87.820 Personal history of traumatic brain injury; Z28.21 Immunization not carried out because of patient refusal; Z88.0 Allergy status to penicillin; Z91.041 Radiographic dye allergy status; Z91.040 Latex allergy status
CPT/HCPCS: 36415; 70450; 70496; 70498; 70551; 71046; 80053; 80061; 81001; 82140; 82550; 82607; 82746; 84443; 84484; 85025; 85610; 85730; 93005; 93306; 95816; 96361; 96374; 96375; 96376; 99291